=== PATIENT | female | born 1970 | race Caucasian/White ===

== ENCOUNTER 2022-03-01 04:14 | Day surgery (SDC) | payer BC ==
[2022-02-24 10:08] VITALS: BMI 30.7
[~2022-03-01 04:14] MED LIST: BUPIVACAINE HCL/PF 0.5% (5MG/ML) 10 ML VIAL IJ ONE; LIDOCAINE HCL 1%, 10 MG/ML (20ML VIAL) NR ONE
[2022-03-01 07:38] VITALS: RESP 20
[2022-03-01] MEDS ORDERED: MIDAZOLAM HCL 2 MG/2 ML SINGLE DOSE VIAL ONE (08:42)
[2022-03-01] MEDS ORDERED: PROPOFOL 20 ML ONE (08:45)
[2022-03-01] MEDS ORDERED: LIDOCAINE HCL 1%, 10 MG/ML (20ML VIAL) ONE (09:07)
[2022-03-01] MEDS ORDERED: ceFAZolin SODIUM 1 GM VIAL ONE ×2 (09:25→09:27)
[2022-03-01] MEDS ORDERED: ceFAZolin SODIUM 1 GM VIAL IVPB ONE (09:27)
[2022-03-01] MEDS ORDERED: KETOROLAC TROMETHAMINE 30 MG/1 ML VIAL ONE (09:36)
[2022-03-01] MEDS ORDERED: DEXAMETHASONE SOD PHOSPHATE 4 MG/1 ML VIAL ONE (09:36)
[2022-03-01] MEDS ORDERED: LIDOCAINE HCL 1%, 10 MG/ML (20ML VIAL) NR ONE ×2 (09:38)
[2022-03-01] MEDS ORDERED: BUPIVACAINE HCL/PF 0.5% (5MG/ML) 10 ML VIAL IJ ONE ×2 (09:38)
[2022-03-01 14:04] VITALS: BP 115/67; PULSE 68; TEMP 97.5
== END 2022-03-01 14:00 | disposition home or self-care (01) ==
LOC: JASU-SURG 04:14
PROVIDERS: ATTEND Orthopaedic Surgery
PROC: 0LB50ZZ Excision of Right Lower Arm and Wrist Tendon, Open Approach (ICD-10-PCS; 2022-03-01)
PROC: 01N50ZZ Release Median Nerve, Open Approach (ICD-10-PCS; principal; 2022-03-01 09:00)
PROC: 0LN50ZZ Release Right Lower Arm and Wrist Tendon, Open Approach (ICD-10-PCS; 2022-03-01 09:00)
DX: G56.01 Carpal tunnel syndrome, right upper limb (principal); M65.4 Radial styloid tenosynovitis [de Quervain]
CPT/HCPCS: 81025; 88304-TC

== ENCOUNTER 2024-02-04 11:57 | Emergency (ER) | payer BC ==
[2024-02-04 12:11] VITALS: RESP 18; TEMP 97.3; BMI 28.6
[2024-02-04] MEDS: LACTATED RINGERS SOLUTION 1000 ML INFUS.BAG IV ONE (12:36)
[2024-02-04 12:39] LABS: HEMOGLOBIN 12.1 G/dL (10.7-15.3); MCH 29.5 pg (25.7-33.7); MCHC 31.8 g/dl (32.0-36.0); MEAN CELL VOLUME 92.8 fl (80-96); MEAN PLT VOLUME 8.8 fl (7.5-11.1); PLATELET COUNT 252.8 10^3/uL (134-434); RDW 14.7 % (11.6-15.6); WHITE BLOOD COUNT 5.5 10^3/uL (4.0-10.8)
[2024-02-04] MEDS: SODIUM CHLORIDE 0.9% 500 ML INFUS.BAG IV ONE (12:39)
[2024-02-04 12:51] VITALS: BP 111/71; PULSE 78
[2024-02-04 14:16] LABS: ALBUMIN 3.9 g/dl (3.4-5.0); BILIRUBIN,TOTAL 0.4 mg/dl (0.2-1); CALCIUM 9.3 mg/dl (8.5-10.1); CREATININE 0.6 mg/dl (0.6-1.3); POTASSIUM 4.2 mmol/L (3.5-5.1)
== END 2024-02-04 14:40 | disposition home or self-care (01) ==
LOC: FER 11:57
DX: R55 Syncope and collapse (principal)
CPT/HCPCS: 36415; 80053; 84484; 85027; 93005; 99284-25

== ENCOUNTER → 2024-02-04 | Day surgery (SDC) | payer BC | END | disposition home or self-care (01) | LOC: FMAMMOTONE 10:11 | PROVIDERS: ATTEND Registered Nurse | PROC: 0HBU3ZX Excision of Left Breast, Percutaneous Approach, Diagnostic (ICD-10-PCS; principal; 2024-02-04) | DX: N60.11 Diffuse cystic mastopathy of right breast (principal); N64.89 Other specified disorders of breast; R92.0 Mammographic microcalcification found on diagnostic imaging of breast | CPT/HCPCS: 19081; 76098-TC-FY; 88305-TC; A4648 ==

== ENCOUNTER 2024-04-02 01:57 | Emergency (ER) | payer BC ==
[2024-04-02 02:04] VITALS: BP 126/90; PULSE 114; RESP 18; TEMP 99
[2024-04-02] MEDS ORDERED: METOCLOPRAMIDE HCL INJECTION 10 MG/2 ML VIAL ONE (02:52)
[2024-04-02] MEDS ORDERED: ACETAMINOPHEN INJECTION 100 ML ONE (02:52)
[2024-04-02] MEDS: LACTATED RINGERS SOLUTION 1000 ML INFUS.BAG IV ONE (03:10)
[2024-04-02] MEDS: ACETAMINOPHEN 1000 MG/100 ML BAG IVPB ONE (03:10)
[2024-04-02] MEDS: METOCLOPRAMIDE HCL INJECTION 10 MG/2 ML VIAL IVPB ONE (03:11)
[2024-04-02 03:14] LABS: BASO % 0.9 % (0-2.0); EOS % 0.7 % (0-4.5); HEMATOCRIT 43.8 % (32.4-45.2); LYMPH % 19.4 % (8-40); MCH 30.7 pg (25.7-33.7); MCHC 34.3 g/dl (32.0-36.0); MEAN CELL VOLUME 89.6 fl (80-96); MEAN PLT VOLUME 7.7 fl (7.5-11.1); MONO % 7.4 % (3.8-10.2); NEUT % 71.6 % (42.8-82.8); PLATELET COUNT 326 10^3/uL (134-434); RBC 4.89 M/mm3 (3.60-5.2); RDW 14.6 % (11.6-15.6); WHITE BLOOD COUNT 6.9 K/mm3 (4.0-10.0)
[2024-04-02 03:32] LABS: POTASSIUM 4.1 mmol/L (3.5-5.1)
[2024-04-02 03:34] LABS: BLOOD UREA NITROGEN 10.9 mg/dL (7-18); CALCIUM 9.9 mg/dL (8.5-10.1); MAGNESIUM 2.2 mg/dL (1.8-2.4)
[2024-04-02 03:37] LABS: CREATININE 0.6 mg/dL (0.55-1.3)
[2024-04-02 03:39] LABS: BILIRUBIN,TOTAL 0.7 mg/dL (0.2-1); TOT PROT 7.8 g/dl (6.4-8.2)
== END 2024-04-02 05:05 | disposition home or self-care (01) ==
LOC: JER 01:57
PROC: 3E033NZ Introduction of Analgesics, Hypnotics, Sedatives into Peripheral Vein, Percutaneous Approach (ICD-10-PCS; principal; 2024-04-02)
PROC: 3E033GC Introduction of Other Therapeutic Substance into Peripheral Vein, Percutaneous Approach (ICD-10-PCS; 2024-04-02)
DX: R11.2 Nausea with vomiting, unspecified (principal); R51.9 Headache, unspecified; R42 Dizziness and giddiness; R09.81 Nasal congestion; Z20.822 Contact with and (suspected) exposure to COVID-19
CPT/HCPCS: 0241U-QW; 36415; 80053; 83690; 83735; 85025; 93005; 93010; 99284-25; J0131